=== PATIENT | male | born 1945 | race American Indian/Alaskan Native ===

== ENCOUNTER 2016-10-19 10:10 | Emergency (ER) | payer MEDICARE ==
[2016-10-19 10:19] VITALS: BP 129/67
--- NOTE | 2016-10-19 12:41 | Emergency Department Report ---
HPI - General Chief Complaint: Headache - HPI HPI: Patient is a 71-year-old healthy looking male with a history of diabetes and high blood pressure controlled with medication presents to ED complaining of seeing some spots in front of his eyes6 3 days. Patient states 3 days ago he noticed Speck in front of his eye. Patient states he seizes intermittently throughout the day patient states suspects resolves from time to time. Patient states he has been out of his glipizide for the past 4 days. Patient states he has ordered a refill and is medication should be here this week. Patient also had many tests is seen in occipital intermittent, 4 out of 10 in intensity headache occurred 2 days ago and is now resolved. He denies nausea, vomiting, dizziness, blurry vision, shortness of breath, chest pain or any other problems ED Past Medical Hx - Past Medical History Previous Medical History?: Yes Hx Hypertension: Yes Hx Diabetes: Yes - Surgical History Past Surgical History?: No - Social History Smoking Status: Never Smoker Substance Use Type: Alcohol, Prescribed - Medications Home Medications: Home Medications Medication Instructions Recorded Confirmed Last Taken Type glipiZIDE [Glucotrol] 10 mg PO DAILY #30 tablet 10/19/16 Unknown Rx ED Review of Systems ROS: Stated complaint: HEADACHE Other details as noted in HPI Constitutional: denies: chills, fever Eyes: denies: eye pain, eye discharge, vision change ENT: denies: ear pain, throat pain, dental pain, hearing loss Respiratory: denies: cough, shortness of breath, wheezing Cardiovascular: denies: chest pain, palpitations Endocrine: no symptoms reported Gastrointestinal: denies: abdominal pain, nausea, vomiting, diarrhea Genitourinary: denies: urgency, dysuria, frequency, discharge Musculoskeletal: denies: back pain, joint swelling, arthralgia Skin: denies: rash, lesions Neurological: denies: headache, weakness, numbness, paresthesias, confusion Psychiatric: denies: anxiety, depression Hematological/Lymphatic: denies: easy bleeding, easy bruising Physical Exam - Physical Exam Vital Signs: Vital Signs 10/19/16 10:14 Temperature 98.1 F Pulse Rate 73 Respiratory 20 Rate Blood Pressure 129/67 O2 Sat by Pulse 100 Oximetry Physical Exam: GENERAL: Alert and oriented x3, no apparent distress, Normal Gait, atraumatic. HEAD: Head is normocephalic and a-traumatic. Nontender to palpation EYES: Extra ocular muscles are intact. Pupils are equal, round, and reactive to light and accommodation. No A-V nicking, blood vessels normal EARS: symetrical, atraumatic, non tender, ear canal clear and moderate cerumen, tympanic membrance non inflamed. gross auditory nml bilaterally. NOSE: Nose symetrical, Nontender,Nares appeared normal. MOUTH:Mouth is well hydrated and without lesions. Tonsils nonerythematous or swollen, Uvula midline, Tongue not elevated. Mucous membranes are moist. Posterior pharynx clear, no exudate or lesions. Patent airways. NECK: Supple. Non edematous, No carotid bruits. No lymphadenopathy or thyromegaly. No C-spine tenderness LUNGS: Symetrical with respiration, No wheezing, no rales or crackles, CTAB. HEART: S1, S2 present, regular rate and rhythm without murmur, no rubs, no gallops. Non tender to palpation NEUROLOGIC: The patient is cooperative with no focal neurologic deficits. Cranial nerves II through XII are grossly intact. Normal speech. PSYCHIATRIC: Mood is congruent with affect, denies suicidal or homicidal ideations. SKIN: Warm and dry, No lesions, No ulceration or induration present. ED Course Vital Signs 10/19/16 10:14 Temperature 98.1 F Pulse Rate 73 Respiratory 20 Rate Blood Pressure 129/67 O2 Sat by Pulse 100 Oximetry ED Medical Decision Making - Medical Decision Making 71-year-old male presents with hyperglycemia ED course: Plan of care blood glucose testing was 171 Discussed the patient will receive glipizide 10 mg ED. Discuss follow-up with primary care physician as soon as possible. Discussed diabetic medication and start taking it. Discussed with the patient to take Tylenol as needed for headaches Discussed worsening of symptoms or new symptoms arise to return to ED Vital signs are normal patient is in no acute distress. Patient's alert and oriented 3 has no neurological deficit Critical care attestation.: If time is entered above; I have spent that time in minutes in the direct care of this critically ill patient, excluding procedure time. 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 If worsening symptoms or new symptoms arise return to ED Prescriptions: glipiZIDE [Glucotrol] 10 mg PO DAILY #30 tablet Referrals: ELINOR ALLRED MD [Primary Care Provider] - 3-5 Days Forms: Work/School Release Form(ED) Time of Disposition: 13:27
[2016-10-19] MEDS ORDERED: GLUCOTROL PO ONE (12:51)
[2016-10-19] MEDS ORDERED: GLUCOPHAGE ONE (12:55)
== END 2016-10-19 13:40 | disposition home or self-care (01) ==
LOC: ED 10:10
DX: E11.65 Type 2 diabetes mellitus with hyperglycemia (principal); I10 Essential (primary) hypertension
CPT/HCPCS: 82962; 99282

== ENCOUNTER 2018-10-08 13:11 | Emergency (ER) | payer MEDICARE ==
--- NOTE | 2018-10-08 13:51 | Event Note ---
ED Screening Note Date of service: 10/08/18 Time: 13:49 ED Screening Note: 73 y/o male comes in for abd pain times 3 day that is intermittent. No N/V or constipation. This initial assessment/diagnostic orders/clinical plan/treatment(s) is/are subject to change based on patients health status, clinical progression and re- assessment by fellow clinical providers in the ED. Further treatment and workup at subsequent clinical providers discretion. Patient/guardian urged not to elope from the ED as their condition may be serious if not clinically assessed and managed. Initial orders include:
[2018-10-08 14:23] LABS: Basophils % (Auto) 0.4 % (0.0-1.8); Eosinophils # (Auto) 0.2 K/mm3 (0.0-0.4); Eosinophils % (Auto) 2.5 % (0.0-4.3); Hematocrit 43.6 % (35.5-45.6); Hemoglobin 14.7 gm/dl (11.8-15.2); Lymphocytes # (Auto) 1.1 K/mm3 (1.2-5.4); Lymphocytes % (Auto) 17.3 % (13.4-35.0); Mean Corpuscular HGB Conc 34 % (32-34); Mean Corpuscular Volume 90 fl (84-94); Monocytes # (Auto) 0.4 K/mm3 (0.0-0.8); Monocytes % (Auto) 6.6 % (0.0-7.3); Platelet Count 139 K/mm3 (140-440); Red Blood Count 4.84 M/mm3 (3.65-5.03); Red Cell Distribution Width 14.7 % (13.2-15.2)
[2018-10-08 14:54] LABS: Bacteria,Urine 1+ /HPF (Negative); Bilirubin,Urine NEG (Negative); Blood,Urine NEG (Negative); Color,Urine Yellow (Yellow); Mucus,Urine 2+ /HPF; Protein,Urine <15 mg/dL mg/dL (Negative); Urobilinogen,Urine < 2.0 mg/dL (<2.0)
[2018-10-08 14:56] LABS: Albumin 3.9 g/dL (3.9-5); Calcium 9.1 mg/dL (8.4-10.2)
[2018-10-08] MEDS ORDERED: PEPCID IV ONE (18:01)
[2018-10-08] MEDS ORDERED: TYLENOL PO ONE (18:01)
[2018-10-08] MEDS ORDERED: NACL 0.9% 500 ML 500 ML IV ONE (18:01)
--- NOTE | 2018-10-08 18:02 | Emergency Department Report ---
ED General Adult HPI - General Chief complaint: Abdominal Pain Stated complaint: STOMACH PAIN Time Seen by Provider: 10/08/18 17:54 Source: patient, RN notes reviewed Mode of arrival: Ambulatory Limitations: No Limitations - History of Present Illness Initial comments: Primary care Dr.: Dr. Allred Past medical history: Hypertension, diabetes Reports no history of abdominal surgeries. This is a pleasant 73-year-old gentleman, not known to this provider previously. He presents to the emergency room with a complaint of resolved lower abdominal pain, suprapubic, bilateral lower quadrants, radiates up to the right flank and back, intermittent over the past 2-3 days. The pain is described as "nagging" in nature, and is now resolved. The patient's never had pain like this before. He reports minimal relief with [id number] medications. He denies headache, neck pain, chest pain, shortness of breath, testicular pain, urinary symptoms. Reports a recent road trip to [place]. Denies hematemesis and bright red blood per rectum. Pain-fr ee at this time, not understanding complaints at this time. -: Gradual, days(s) (3) Location: abdomen Radiation: back, abdomen Severity scale (0 -10): 2 Quality: other Consistency: intermittent Improves with: none Worsens with: none - Related Data Previous Rx's Medication Instructions Recorded Last Taken Type glipiZIDE [Glucotrol] 10 mg PO DAILY #30 tablet 10/19/16 Unknown Rx Acetaminophen [Non-Aspirin Extra 500 mg PO Q6HR PRN #30 tablet 10/08/18 Unknown Rx Strength] Nitrofurantoin Ogle/M-Cryst 100 mg PO Q12HR #14 capsule 10/08/18 Unknown Rx [Macrobid CAP] Allergies Allergy/AdvReac Type Severity Reaction Status Date / Time No Known Allergies Allergy Verified 10/08/18 13:12 ED Review of Systems ROS: Stated complaint: STOMACH PAIN Other details as noted in HPI Constitutional: denies: fever, malaise Eyes: denies: eye discharge, vision change ENT: denies: epistaxis Respiratory: denies: cough Cardiovascular: denies: chest pain Gastrointestinal: abdominal pain. denies: nausea, vomiting, hematemesis, melena, hematochezia Genitourinary: denies: urgency, dysuria, testicular pain Musculoskeletal: back pain Neurological: denies: weakness Psychiatric: denies: anxiety ED Past Medical Hx - Past Medical History Hx Hypertension: Yes Hx Diabetes: Yes - Surgical History Past Surgical History?: No - Social History Smoking Status: Never Smoker Substance Use Type: Alcohol - Medications Home Medications: Home Medications Medication Instructions Recorded Confirmed Last Taken Type glipiZIDE [Glucotrol] 10 mg PO DAILY #30 tablet 10/19/16 Unknown Rx Acetaminophen [Non-Aspirin Extra 500 mg PO Q6HR PRN #30 tablet 10/08/18 Unknown Rx Strength] Nitrofurantoin Ogle/M-Cryst 100 mg PO Q12HR #14 capsule 10/08/18 Unknown Rx [Macrobid CAP] ED Physical Exam - General Limitations: No Limitations General appearance: alert, in no apparent distress - Head Head exam: Present: atraumatic, normocephalic - Eye Eye exam: Present: normal appearance, EOMI. Absent: nystagmus - ENT ENT exam: Present: normal exam, normal orophraynx, mucous membranes moist, normal external ear exam - Neck Neck exam: Present: normal inspection, full ROM. Absent: tenderness, meningismus - Respiratory Respiratory exam: Present: normal lung sounds bilaterally. Absent: respiratory distress - Cardiovascular Cardiovascular Exam: Present: regular rate, normal rhythm, normal heart sounds. Absent: bradycardia, tachycardia, irregular rhythm, systolic murmur, diastolic murmur, rubs, gallop - GI/Abdominal GI/Abdominal exam: Present: soft. Absent: distended, tenderness, guarding, rebound, rigid, pulsatile mass - Rectal Rectal exam: Present: deferred - exam: Present: normal inspection, other (there is no testicular tenderness. There is normal testicular lie bilaterally. There is normal cremasteric reflex bilaterally.). Absent: testicular tenderness External exam: Present: normal external exam - Extremities Exam Extremities exam: Present: normal inspection, full ROM, other (2+ pulses noted in the bilateral upper, lower extremities. Compartments soft. No long bony tenderness. The pelvis is stable.). Absent: pedal edema, joint swelling, calf tenderness - Back Exam Back exam: Present: normal inspection, full ROM. Absent: tenderness, CVA tenderness (R), CVA tenderness (L), paraspinal tenderness, vertebral tenderness - Neurological Exam Neurological exam: Present: alert, oriented X3, other (Extraocular movements intact. Tongue midline. No facial droop. Facial sensation intact to light touch in the V1, V2, V3 distribution bilaterally. 5 and 5 strength in 4 extremities.. Sensation is intact to light touch in 4 extremities.). Absent: motor sensory deficit - Psychiatric Psychiatric exam: Present: normal affect, normal mood - Skin Skin exam: Present: warm, dry, intact, normal color. Absent: rash ED Course Vital Signs 10/08/18 10/08/18 10/08/18 13:48 17:45 19:32 Temperature 97.5 F L 97.5 F L 98.2 F Pulse Rate 69 59 L 81 Respiratory 18 16 16 Rate Blood Pressure 142/65 Blood Pressure 169/83 178/89 [Left] O2 Sat by Pulse 100 98 Oximetry 10/08/18 10/08/18 10/08/18 21:21 21:49 23:26 Temperature 98.6 F 98.0 F Pulse Rate 79 81 79 Respiratory 17 16 16 Rate Blood Pressure Blood Pressure 172/88 149/80 139/76 [Left] O2 Sat by Pulse 98 99 98 Oximetry - Reevaluation(s) Reevaluation #1: 10/08/18 19:14 Differential diagnosis, including not limited to: Urinary tract infection, colitis, diverticulitis, appendicitis, kidney infection, renal colic, pneumonia, pulmonary embolism Assessment and plan: 73-year-old gentleman, very well appearing, calm and cooperative, with nonspecific lower abdominal nagging pain, that radiates up to the right upper quadrant. Not tender. Objective laboratory studies unremarkable. Urinalysis reviewed and appreciated, endorses no urinary symptoms. We will treat the patient's symptoms as he develops them, obtain CT scan of the chest to exclude atypical presentation of pneumonia, pulmonary embolism, CT scan of the abdomen and pelvis. We will reassess once his data points to result. Reevaluation #2: 10/08/18 19:[address] Keyon Gutierrez to follow up on cta chest, ct abd/ pelvis Assuming no emergent pathology, plan to discharge patient to follow-up. I discussed this with the patient and his fiance before leaving the department. They verbalize understanding. They indicated that they're reliable to closely follow-up. 10/09/18 18:47 ED Medical Decision Making - Lab Data Result diagrams: 10/08/18 14:06 10/08/18 14:06 Vital Signs 10/08/18 10/08/18 13:48 17:45 Temperature 97.5 F L 97.5 F L Pulse Rate 69 59 L Respiratory 18 16 Rate Blood Pressure 142/65 Blood Pressure 169/83 [Left] O2 Sat by Pulse 100 Oximetry Lab Results 10/08/18 10/08/18 10/08/18 Range/Units 14:06 14:06 14:17 WBC 6.5 (4.5-11.0) K/mm3 RBC 4.84 (3.65-5.03) M/mm3 Hgb 14.7 (11.8-15.2) gm/dl Hct 43.6 (35.5-45.6) % MCV 90 (84-94) fl MCH 30 (28-32) pg MCHC 34 (32-34) % RDW 14.7 (13.2-15.2) % Plt Count 139 L (140-440) K/mm3 Lymph % (Auto) 17.3 (13.4-35.0) % Ogle % (Auto) 6.6 (0.0-7.3) % Eos % (Auto) 2.5 (0.0-4.3) % Baso % (Auto) 0.4 (0.0-1.8) % Lymph # 1.1 L (1.2-5.4) K/mm3 Ogle # 0.4 (0.0-0.8) K/mm3 Eos # 0.2 (0.0-0.4) K/mm3 Baso # 0.0 (0.0-0.1) K/mm3 Seg Neutrophils % 73.2 H (40.0-70.0) % Seg Neutrophils # 4.8 (1.8-7.7) K/mm3 Sodium 141 (137-145) mmol/L Potassium 3.9 (3.6-5.0) mmol/L Chloride 103.7 (98-107) mmol/L Carbon Dioxide 25 (22-30) mmol/L Anion Gap 16 mmol/L BUN 15 (9-20) mg/dL Creatinine 1.4 (0.8-1.5) mg/dL Estimated GFR 60 ml/min BUN/Creatinine Ratio 11 % Glucose 104 H (75-100) mg/dL Calcium 9.1 (8.4-10.2) mg/dL Total Bilirubin 0.30 (0.1-1.2) mg/dL AST 18 (5-40) units/L ALT 15 (7-56) units/L Alkaline Phosphatase 75 (35-129) units/L Total Protein 6.8 (6.3-8.2) g/dL Albumin 3.9 (3.9-5) g/dL Albumin/Globulin Ratio 1.3 % Lipase 80 H (13-60) units/L Urine Color Yellow (Yellow) Urine Turbidity Clear (Clear) Urine pH 6.0 (5.0-7.0) Ur Specific [place] 1.014 (1.003-1.030) Urine Protein <15 mg/dl (Negative) mg/dL Urine Glucose (UA) Neg (Negative) mg/dL Urine Ketones Neg (Negative) mg/dL Urine Blood Neg (Negative) Urine Nitrite Neg (Negative) Urine Bilirubin Neg (Negative) Urine Urobilinogen < 2.0 (<2.0) mg/dL Ur Leukocyte Esterase Sm (Negative) Urine WBC (Auto) 6.0 (0.0-6.0) /HPF Urine RBC (Auto) 2.0 (0.0-6.0) /HPF U Epithel Cells (Auto) 1.0 (0-13.0) /HPF Urine Bacteria (Auto) 1+ (Negative) /HPF Urine Mucus 2+ /HPF - EKG Data -: EKG Interpreted by Me EKG shows normal: sinus rhythm Rate: bradycardia - EKG Data When compared to previous EKG there are: previous EKG unavailable 10/08/18 19:13 This is a sinus bradycardia, minute, normal axis, QTC within normal limits, left ventricular hypertrophy, nonspecific T-wave abnormalities, this is an abnormal EKG, his EKG is not consistent with ST elevation myocardial infarction. - Radiology Data Radiology results: pending, report reviewed, image reviewed Critical care attestation.: If time is entered above; I have spent that time in minutes in the direct care of this critically ill patient, excluding procedure time. ED Disposition Clinical Impression: Lower abdominal pain Disposition: DC-01 TO HOME OR SELFCARE Is pt being admited?: No Does the pt Need Aspirin: No Condition: Stable Additional Instructions: Take antibiotics as directed. Take the pain medication as directed. Drink 4 cups of water per day for the next 5-7 days. Do not take metformin medication for the next 2 days, the patient takes this medication. Follow up in 2 days for repeat checkup/evaluation. The patient may follow-up with his primary care doctor, will return to the emergency room for repeat evaluation. CT scan of the abdomen and pelvis and chest were performed, and may have demonstrated nonemergent incidental findings. Please have your primary care doctor contact the medical records department to obtain CT scan results, and to follow-up on an nonemergent incidental findings on the CT scan of the chest, abdomen, pelvis. Please return to the emergency room right away with new, worsening or different symptoms, or symptoms not present on the initial emergency room evaluation. Prescriptions: Nitrofurantoin Ogle/M-Cryst [Macrobid CAP] 100 mg PO Q12HR #14 capsule Acetaminophen [Non-Aspirin Extra Strength] 500 mg PO Q6HR PRN #30 tablet PRN Reason: Pain , Severe (7-10) Referrals: KEV ALLRED [Other] - 3-5 Days
--- NOTE | 2018-10-08 21:53 | Cat Scan Report ---
PROCEDURE: CT ABDOMEN PELVIS W CON TECHNIQUE: Computerized axial tomography of the abdomen and pelvis was performed during the administ ration of IV iodinated nonionic contrast. HISTORY: right flank and back pain, ruq pain COMPARISONS: None . FINDINGS: Lower Lung aguilera: There appears be mild dependent atelectasis. Lung bases otherwise are clear. Upper Abdomen: The liver, the gallbladder, the adrenal glands, pancreas and spleen are unremarkable. Kidneys, Ureters and Urinary bladder: 8 mm low-density nodule seen in the renal cortex midportion le ft kidney posteriorly appears to represent a renal cortical cyst. The kidneys and ureters otherwise a re unremarkable. There is a 2 cm bladder diverticulum visualized posterior left lateral aspect of uri nary bladder. Urinary bladder is only partially filled. The wall appears mildly prominent. I cannot e xclude trabeculation from bladder obstruction. Retroperitoneum: The abdominal aorta appears normal. Minimal atherosclerotic changes seen in the bozena c arteries. Nonspecific subcentimeter lymph nodes are seen in the retroperitoneum. No pathologically enlarged ly mph nodes are identified. Bowel: Moderate sigmoid diverticulosis visualized without evidence of diverticulitis. Bowel loops ot herwise unremarkable. No evidence of bowel obstruction ascites or free intraperitoneal gas. Normal-ap pearing appendix is seen in the right lower quadrant. Minimal umbilical hernia containing adipose tis evelyn is visualized. No herniated loops of bowel are seen. Reproductive organs: There is nonspecific diffuse prostate enlargement causing compression of the ur inary bladder. Other: [id number] osteoarthritic changes visualized right hip, mild changes left hip. No acute bone abnormalities are visualized. IMPRESSION: There is nonspecific diffuse prostate enlargement. Urinary bladder wall is mildly thickened in a bladder diverticulum is visualized suggesting bladder o utlet obstruction secondary to the enlarged prostate gland. Small renal cortical cyst suspected on the left. Arthritic change visualized in the hips as described. Mild colonic diverticulosis without evidence of diverticulitis. This document is electronically signed by Dmitri Reveles MD., October 08 2018 09:51:31 PM ET
--- NOTE | 2018-10-08 22:49 | Cat Scan Report ---
PROCEDURE: CT ANGIO CHEST TECHNIQUE: Computerized tomographic angiography of the chest was performed during the IV injection o f iodinated nonionic contrast including image processing. The image data was postprocessed using 2-d imensional multiplanar reformatted (MPR) and 3-dimensional (MIP and/or volume rendered) techniques. A utomated exposure control, adjustment of mA and/or kV according to patient size, or iterative reconst ruction dose optimization techniques were utilized. CT DOSE LENGTH PRODUCT: 3952.4 mGycm HISTORY: right flank and back pain, ruq pain COMPARISONS: None . FINDINGS: Pulmonary outflow tract and right and left main pulmonary arteries and their proximal branches: Subop timally visualized due to breathing motion artifact.. No filling defects are seen that would suggest pulmonary embolus. Pericardium: No evidence of pericardial effusion. Thoracic aorta: No evidence of aneurysmal dilatation or dissection. Coronary arteries: Partially calcified indicating atherosclerotic disease. Mediastinum and hilar regions: Non specific subcentimeter lymph nodes are visualized. No pathologica lly enlarged lymph nodes or masses are identified. Lung Woodard: Suboptimally visualized due to breathing motion artifact. There appears to be a small am ount of dependent atelectasis. Lungs otherwise appear clear. No pleural effusions or pneumothorax are visualized. Upper abdomen: No acute or focal abnormality is seen. Other: No acute bone abnormalities are identified. IMPRESSION: Atherosclerotic changes visualized in the coronary arteries. No evidence of aortic aneurysm or dissection.. No evidence of pulmonary embolus. Small amount of dependent atelectasis is visualized. Lungs otherwise are clear. This document is electronically signed by Dmitri Reveles MD., October 08 2018 10:47:49 PM ET
[2018-10-08 23:27] VITALS: BP 139/76
== END 2018-10-08 23:27 | disposition home or self-care (01) ==
LOC: ED 13:11
DX: R10.31 Right lower quadrant pain (principal); R10.32 Left lower quadrant pain; I10 Essential (primary) hypertension; E11.9 Type 2 diabetes mellitus without complications; Z79.899 Other long term (current) drug therapy
CPT/HCPCS: 36415; 71275; 74177; 80053; 81001; 83690; 85025; 93005; 93010; 96374; 99285; J7040; Q9967

== ENCOUNTER 2018-10-22 11:34 | Emergency (ER) | payer MEDICARE ==
[2018-10-22 11:56] VITALS: BP 160/80
--- NOTE | 2018-10-22 12:03 | Emergency Department Report ---
ED General Adult HPI - General Chief complaint: Recheck/Abnormal Lab/Rx Stated complaint: OUT OF MEDS Time Seen by Provider: 10/22/18 11:54 Source: patient Mode of arrival: Ambulatory Limitations: No Limitations - History of Present Illness Initial comments: Pt is a 73 yo male who presents to the ED with c/o intermittent supurapubic discomfort that began a week ago. he denies a pain, states it feels like a pressure. he states he experiences it when he is trying to urinate. he denies any dysuria, N/V/D, difficulty having BM, decreased urine output. he was evaluated in the ED and had a UA which was normal and a CT abd/pelvis which showed enlargement of the prostate. pt was given pain medication and macrobid. he presents today because he completed the macrobid and was not sure if he needed a refill of the medication. he has not yet seen his PCP. - Related Data Previous Rx's Medication Instructions Recorded Last Taken Type glipiZIDE [Glucotrol] 10 mg PO DAILY #30 tablet 10/19/16 Unknown Rx Acetaminophen [Non-Aspirin Extra 500 mg PO Q6HR PRN #30 tablet 10/08/18 Unknown Rx Strength] Nitrofurantoin [place]/M-Cryst 100 mg PO Q12HR #14 capsule 10/08/18 Unknown Rx [Macrobid CAP] Tamsulosin [Flomax] 0.4 mg PO QDAY #14 cap 10/22/18 Unknown Rx Allergies Allergy/AdvReac Type Severity Reaction Status Date / Time No Known Allergies Allergy Verified 10/08/18 13:12 ED Review of Systems ROS: Stated complaint: OUT OF MEDS Other details as noted in HPI Comment: All other systems reviewed and negative ED Past Medical Hx - Past Medical History Previous Medical History?: Yes Hx Hypertension: Yes Hx Diabetes: Yes Additional medical history: enlarged prostate - Surgical History Past Surgical History?: No - Social History Smoking Status: Never Smoker Substance Use Type: None - Medications Home Medications: Home Medications Medication Instructions Recorded Confirmed Last Taken Type glipiZIDE [Glucotrol] 10 mg PO DAILY #30 tablet 10/19/16 Unknown Rx Acetaminophen [Non-Aspirin Extra 500 mg PO Q6HR PRN #30 tablet 10/08/18 Unknown Rx Strength] Nitrofurantoin [place]/M-Cryst 100 mg PO Q12HR #14 capsule 10/08/18 Unknown Rx [Macrobid CAP] Tamsulosin [Flomax] 0.4 mg PO QDAY #14 cap 10/22/18 Unknown Rx ED Physical Exam - General Limitations: No Limitations General appearance: alert, in no apparent distress - Head Head exam: Present: atraumatic, normocephalic - Eye Eye exam: Present: normal appearance, PERRL - ENT ENT exam: Present: mucous membranes moist - GI/Abdominal GI/Abdominal exam: Present: soft. Absent: distended, tenderness, guarding, rebound, rigid - Neurological Exam Neurological exam: Present: alert, oriented X3 - Psychiatric Psychiatric exam: Present: normal affect, normal mood - Skin Skin exam: Present: warm, dry, intact ED Course Vital Signs 10/22/18 11:54 Temperature 97.9 F Pulse Rate 66 Respiratory 18 Rate Blood Pressure 160/80 O2 Sat by Pulse 100 Oximetry ED Medical Decision Making - Medical Decision Making Pt is a 73 yo male who presents to the ED with c/o intermittent supurapubic discomfort that began a week ago. he denies a pain, states it feels like a pressure. he states he experiences it when he is trying to urinate. he denies any dysuria, N/V/D, difficulty having BM, decreased urine output. he was evaluated in the ED and had a UA which was normal and a CT abd/pelvis which showed enlargement of the prostate. pt was given pain medication and macrobid. he presents today because he completed the macrobid and was not sure if he needed a refill of the medication. he has not yet seen his PCP. spoke with Dr. tripp regarding pt and recommended flomax. pt given prescription for flomax. advised to take as prescribed. discussed with pt to please follow up with your primary care doctor in the next 2-3 days. return to the emergency room for any new or worsening symptoms or if begin to have abdominal pain. Critical care attestation.: If time is entered above; I have spent that time in minutes in the direct care of this critically ill patient, excluding procedure time. ED Disposition Clinical Impression: Lower abdominal pain BPH (benign prostatic hyperplasia) Qualifiers: Lower urinary tract symptom presence: symptoms present Lower urinary tract symptom detail: unspecified Qualified Code(s): N40.1 - Benign prostatic hyperplasia with lower urinary tract symptoms Disposition: - TO HOME OR SELFCARE Is pt being admited?: No Does the pt Need Aspirin: No Condition: Stable Instructions: Benign Prostatic Hypertrophy (ED) Additional Instructions: please take medication as prescribed. please follow up with your primary care doctor in the next 2-3 days. return to the emergency room for any new or worsening symptoms or if begin to have abdominal pain. Prescriptions: Tamsulosin [Flomax] 0.4 mg PO QDAY #14 cap Referrals: [facility] [Outside] - 2-3 Days Time of Disposition: 12:15 Print Language: BELARUSIAN
== END 2018-10-22 12:26 | disposition home or self-care (01) ==
LOC: ED 11:34
DX: N40.1 Benign prostatic hyperplasia with lower urinary tract symptoms (principal); I10 Essential (primary) hypertension; E11.9 Type 2 diabetes mellitus without complications; Z79.899 Other long term (current) drug therapy
CPT/HCPCS: 99282